=== PATIENT | male | born 1965 | race Caucasian/White ===

== ENCOUNTER 2016-08-28 05:39 | Day surgery (SDC) | payer MEDICARE, BC ==
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
[~2016-08-28 05:39] MED LIST: IV START KIT ONE; LACTATED RINGERS 1,000 ML ONE
[2016-08-28] MEDS ORDERED: CEFAZOLIN SODIUM 2 GRAM PREMIX 100 ML IV PRN (05:45)
[2016-08-28] MEDS ORDERED: MIDAZOLAM HCL 1 MG/ML 2ML VIAL ONE ×2 (06:32→07:01)
[2016-08-28] MEDS ORDERED: PROPOFOL 20 ML IV ONE ×2 (06:32→07:52)
[2016-08-28] MEDS ORDERED: FENTANYL 100 MCG/2 ML VIAL ONE ×2 (06:32→07:48)
[2016-08-28] MEDS ORDERED: ROPIVACAINE 0.5% 30 ML VIAL ONE (07:01)
[2016-08-28] MEDS ORDERED: NERVE BLOCK PROCEDURAL TRAY 1 EACH ONE (07:04)
[2016-08-28] MEDS ORDERED: LACTATED RINGERS 1,000 ML ONE (07:31)
[2016-08-28] MEDS ORDERED: FENTANYL 100 MCG/2 ML VIAL IV PRN (07:54)
[2016-08-28] MEDS ORDERED: MEPERIDINE 25 MG/ML SYRINGE IV PRN (07:54)
[2016-08-28] MEDS ORDERED: PROMETHAZINE HCL 25 MG/ML VIAL IM PRN (07:54)
[2016-08-28] MEDS ORDERED: NALOXONE HCL 0.4 MG/ML VIAL IV PRN (07:54)
[2016-08-28] MEDS ORDERED: ATROPINE SULFATE 0.4 MG/1 ML VIAL IV PRN (07:54)
[2016-08-28] MEDS ORDERED: ON-Q PUMP/ROPIVACAINE 0.2% 400 ML in PREMIX BAG 1 EACH NB PRN (07:54)
[2016-08-28] MEDS ORDERED: ONDANSETRON 4 MG/2ML 2 ML VIAL IV PRN ×2 (07:54→09:07)
[2016-08-28] MEDS ORDERED: LACTATED RINGERS 1,000 ML IV SCH ×2 (08:00→09:07)
[2016-08-28] MEDS ORDERED: ON-Q PUMP/ROPIVACAINE 0.2% 450 ML ONE (08:06)
--- NOTE | 2016-08-28 08:23 | PCMBPN ---
Brief Post Op Note: Date of Procedure: 08/28/16 Start Time: 0730 Preoperative Diagnosis: 1. right knee postop arthrofibrosis Postoperative Diagnosis: 1. Same Procedure: right knee manipulation under anesthesia Surgeon: Anatoliy Whitney MD Assist: none Anesthesia: Diana Loyola (block + MAC) Findings: preop ROM 10-70, postop 2-120 Condition: stable to PACU Complications: none IV Fluids: 1200 mLs of LR Urine Output: 0 mLs Estimated Blood Loss: 0 mLs Tourniquet Time: 0 Specimens: none Implants: none Drains: none Anatoliy Whitney MD
--- NOTE | 2016-08-28 08:25 | RAD ---
INTRAOPERATIVE FLUOROSCOPY HISTORY: Right knee manipulation. TECHNIQUE: 6.3 seconds of fluoroscopy time was provided for Dr. Whitney for purposes of procedural guidance. 4 fluoroscopic spot images were submitted for review. Correlation against plain films, 07/08/2016. FINDINGS: Status post right knee arthroplasty. No gross malalignment or obvious displaced fracture identified. IMPRESSION: Fluoroscopy provided for procedural guidance.
[2016-08-28] MEDS ORDERED: HYDROMORPHONE HCL 1 MG/ML SYRINGE ONE ×2 (08:39→08:50)
[2016-08-28] MEDS: HYDROMORPHONE HCL 1 MG/ML SYRINGE IV PRN ×3 (08:41→08:55)
--- NOTE | 2016-08-28 09:05 | RAD ---
RIGHT KNEE 2 VIEWS HISTORY: Status post right knee manipulation under anesthesia. Frontal and lateral views of the right knee. COMPARISON: 07/08/2016. POSTPROCEDURAL CHANGE: Status post knee arthroplasty. ALIGNMENT: Grossly unremarkable.. JOINT EFFUSION: Small joint effusion.. CALCIFICATIONS: No abnormal calcifications noted. FRACTURE: No displaced acute fracture. PERIPROSTHETIC LUCENCY: No gross new periprosthetic lucency identified. IMPRESSION: Grossly stable post arthroplasty appearance of the right knee. No new fracture or periprosthetic lucency noted. Small joint effusion.
[2016-08-28] MEDS ORDERED: HYDROMORPHONE HCL 1 MG/ML SYRINGE IV PRN (09:07)
[2016-08-28] MEDS ORDERED: KETOROLAC TROMETHAMINE 30 MG/ML 1 ML VIAL IV PRN (09:07)
[2016-08-28] MEDS ORDERED: OXYCODONE HCL 5 MG TABLET PO PRN (09:07)
[2016-08-28] MEDS ORDERED: DIPHENHYDRAMINE HCL 50 MG/1 ML VIAL IV PRN (09:07)
[2016-08-28] MEDS ORDERED: HYDROMORPHONE HCL 0.5 MG/0.5 ML SYRINGE IV PRN (09:47)
[2016-08-28] MEDS ORDERED: KETOROLAC TROMETHAMINE 30 MG/ML 1 ML VIAL ONE (09:59)
--- NOTE | 2016-08-29 09:57 | OP ---
Neftaly FARLEY : 1965 [id number] DATE OF PROCEDURE: August 28, 2016 PREOPERATIVE DIAGNOSIS: Right knee postoperative arthrofibrosis. POSTOPERATIVE DIAGNOSIS: Right knee postoperative arthrofibrosis. PROCEDURE PERFORMED: RIGHT KNEE MANIPULATION UNDER ANESTHESIA. SURGEON: Anatoliy Whitney M.D. RADIOLOGIC TECHNICIAN: None ANESTHESIA: Diana Loyola C.R.N.A., who provided a regional block and monitored anesthesia care. SPECIMENS: No material was sent to the laboratory. ESTIMATED BLOOD LOSS: None. FLUIDS REPLACED: 1,200 mL of crystalloid. TOURNIQUET TIME: None. URINE OUTPUT: None. IMPLANTS: None. DRAINS: No drains. INDICATIONS: This is a 51-year-old gentleman who previously underwent a right total knee arthroplasty and had some interruptions in his initial postoperative physical therapy secondary to medical complications. He has reached a point where he is not progressing any further in this range of motion and has a preoperative range of motion of approximately 10 to 70 degrees. Given this finding and his inability to return to full activities he is interested in manipulation under anesthesia to try to regain some motion. Risks, benefits and alternatives were discussed with the patient and he elected to proceed with surgery. Informed consent was obtained and documented in the chart and the patient was placed on the schedule the first available convenience. DESCRIPTION OF PROCEDURE: The patient was identified in the preoperative holding area where he was marked with an indelible marker by the operating surgeon. He underwent an adductor canal block with a catheter. He was taken to the operating room where he succumbed to intravenous anesthesia. Initial measurements of his range of motion were made. An operative time out was performed and confirmed by all members of the operative team and then gentle pressure was applied by the operating surgeon gradually increasing has flexion and extension until we achieved a post manipulation range of motion from 2 to 120 degrees. Images were obtained with an intraoperative C-arm confirming that there was no bony injury and the patient's stability was checked and found to be satisfactory throughout his range of motion. At this point he was awakened from his sedation. He was transferred to a stretcher and taken postoperatively to the postanesthesia care unit in stable condition. There were no observed intraoperative consultations during this procedure. Job [id number] Cc: Sudburyjanine Marc
== END 2016-08-28 10:35 | disposition home or self-care (01) ==
LOC: SDC 05:39
PROVIDERS: ATTEND Orthopaedic Surgery
PROC: 0SSCXZZ Reposition Right Knee Joint, External Approach (ICD-10-PCS; principal; 2016-08-28)
DX: M24.661 Ankylosis, right knee (principal); Z96.651 Presence of right artificial knee joint; E11.9 Type 2 diabetes mellitus without complications; G47.30 Sleep apnea, unspecified; G47.00 Insomnia, unspecified; F32.9 Major depressive disorder, single episode, unspecified; Z88.5 Allergy status to narcotic agent; Z79.84 Long term (current) use of oral hypoglycemic drugs; Z79.82 Long term (current) use of aspirin
CPT/HCPCS: 27570; 76000; 73560 ×2; J1170 ×2; J3010 ×2; J2795 ×3; A9270; J1885; J2250 ×2; J7120 ×2; A4306; G8978; G8979; G8980

== ENCOUNTER 2016-09-10 21:28 | Emergency (ER) | payer MEDICARE, BC ==
[2016-09-10 22:09] LABS: ABSOLUTE NEUTROPHIL COUNT 6.3 K/mm3 (1.8-7.7); BASO % 0.4 % (0.2-1.0); EOS # 0.2 (0.0-0.5); EOS % 1.5 % (0.9-2.9); HEMATOCRIT 46.6 % (32.0-52.0); HEMOGLOBIN 15.8 gm/l (14.0-18.0); IMM NEUT # 0.1 K/mm3 (0-0.2); IMM NEUT% 0.5 % (0-1); LYMPH # 3.6 (1.0-4.8); LYMPH % 32.8 % (15-45); MEAN CELL VOLUME 85.5 fl (80.0-94.0); MEAN CORPUSCULAR HGB CONC 33.9 g/dl (33.0-37.0); MONO # 0.8 (0.0-0.8); MONO % 7.4 % (4-12); NEUT % 57.4 % (43-75); PLATELET COUNT 303 K/mm3 (130-400); RED CELL DISTRIBUTION WIDTH 13.2 % (11.5-14.5)
[2016-09-10 22:18] LABS: INR 0.97; PROTHROMBIN TIME 10.2 SECONDS (9.3-11.4)
[2016-09-10 22:24] LABS: ALB/GLOB RATIO 1.4 (>1.0); ALBUMIN 4.6 gm/dL (3.5-5.7); CALCIUM 9.8 mg/dL (8.6-10.3)
[2016-09-10] MEDS ORDERED: SODIUM CHLORIDE 0.9% 1,000 ML ONE (22:37)
[2016-09-10] MEDS ORDERED: HYDROMORPHONE HCL 1 MG/ML SYRINGE ONE (22:37)
[2016-09-10] MEDS ORDERED: ONDANSETRON 4 MG/2ML 2 ML VIAL ONE (22:37)
[2016-09-10] MEDS: IOPAMIDOL 370 (76%) 100 ML VIAL IV ONE (23:14)
[2016-09-11] MEDS ORDERED: HYDROMORPHONE HCL 1 MG/ML SYRINGE ONE (00:02)
--- NOTE | 2016-09-11 08:16 | RAD ---
History: Ground-level fall with bruising to the anterior left-sided ribs. Comparison: 08/22/2016. Technique: 2 views Findings: The soft tissue and bony structures are unremarkable. The heart size is appropriate. No infiltrate, effusion or pneumothorax is observed. The hilar and mediastinal structures are normal. Impression: 1. A low inspiratory volume. 2. No active intrathoracic process.
--- NOTE | 2016-09-11 08:20 | RAD ---
KNEE- RIGHT 4 OR MORE VIEWS HISTORY: Multiple falls. COMPARISONS: 08/28/2016. FINDINGS: Multiple views of the right knee and demonstrate a total right knee arthroplasty with long stemmed femoral and tibial components. The appearance is similar to the appearance on prior exam with no definite pericomponent fracture visualized. No focal soft tissue abnormalities are seen. IMPRESSION: 1. A stable appearance of the total right knee arthroplasty with no definite pericomponent fracture visualized.
--- NOTE | 2016-09-11 08:42 | CT ---
HEAD W/O CON History: Multiple falls. Comparison: 12/22/2013. Procedure: 1 mm axial images were obtained through the head from the vertex to the base of the skull without intravenous contrast. Stacked reconstructed 5 mm images were then obtained in the axial, coronal and sagittal planes. Findings: The lateral ventricles are of normal size and shape without evidence of hydrocephalus. No evidence of midline shift is seen. No mass or mass-effect is observed. No evidence of intra- or extra-axial fluid collections or hemorrhage is identified. The dawson/white differentiation is within expected. The basilar cisterns remain uneffaced. The posterior fossa structures are unremarkable. No acute osseous abnormalities are identified. Impression: 1. A negative unenhanced CT scan of the brain. The findings were called to the emergency room at 2331 hours, 09/10/2016, by [facility].
--- NOTE | 2016-09-11 08:55 | CT ---
Exam Type: ABD/PELVIS W/ CON Date and Time: 09/10/2016 10:38 PM Clinical information: Falls. Comparison: 09/11/2015. Procedure: Imaging device: [employer] Aquilion [address] scanner 1 mm axial images were obtained through the abdomen and pelvis. Stacked reconstructed 3, 4 and 5 mm images were photographed in the axial coronal and sagittal planes. No oral contrast was utilized for this examination. 100 ml of Isovue-370 was injected intravenously. Exam: with intravenous contrast. FINDINGS: Lung bases:The visualized lung bases appear to be appropriate with no mass, effusion or consolidation visualized. Liver: the liver is homogeneous with no discrete abnormality visualized. No definite findings of biliary dilatation are observed. Spleen: The spleen is homogeneous and does not appear to be enlarged. Gallbladder: Surgically absent. Pancreas: Normal without enlargement or evidence of adjacent inflammatory changes. Adrenal glands: Normal without enlargement or evidence of adjacent inflammatory changes. Abdominal aorta: Moderate atherosclerotic vascular calcification is seen. No focal aneurysm is visualized. Kidneys: The kidneys appear to be symmetric in size with no perinephric inflammatory changes are identified. No current findings of hydronephrosis are seen. Bowel structures: The visualized bowel is of normal caliber without evidence of dilatation or obstruction. No free fluid or mesenteric inflammatory changes are identified. Appendix: The appendix is well-visualized and appears to be of normal caliber. No periappendiceal inflammatory changes or CT findings of appendicitis are currently observed. Bladder: The bladder is of normal contour. No wall thickening or significant distention is observed. Hernia: A fat filled right inguinal hernia is present as well as an umbilical hernia. Adenopathy: No significant enlarged adenopathy is visualized. Osseous structures: Prominent multilevel lumbar degenerative changes are present, particularly involving the lower lumbar spine. No discrete fracture is visualized. Pelvic structures: The prostate gland is mildly enlarged. IMPRESSION: 1. Prior cholecystectomy. 2. Fat filled umbilical and right inguinal hernias. 3. Atherosclerotic vascular calcification. 4. Lumbar degenerative changes, particularly at the lower lumbar levels. 5. No large organ injury or evidence of free fluid visualized. 6. An enlarged prostate gland. The findings were called to the emergency room at 2331 hours, 09/10/2016, by [facility].
== END 2016-09-11 00:35 | disposition home or self-care (01) ==
LOC: ED 21:28
DX: S09.90XA Unspecified injury of head, initial encounter (principal); M54.9 Dorsalgia, unspecified; M25.561 Pain in right knee; R11.0 Nausea; I25.2 Old myocardial infarction; I48.91 Unspecified atrial fibrillation; I10 Essential (primary) hypertension; E11.9 Type 2 diabetes mellitus without complications; Z79.82 Long term (current) use of aspirin; Z79.84 Long term (current) use of oral hypoglycemic drugs; W10.9XXA Fall (on) (from) unspecified stairs and steps, initial encounter; Y92.9 Unspecified place or not applicable
CPT/HCPCS: 85025; 80053; 85610; 71020; 73564; 74177; 70450; 96375; 96376; 99284 ×2; 96374; 96361 ×2; 93005; J1170 ×2; J2405; J7030; Q9967

== ENCOUNTER 2016-09-30 17:34 | Emergency (ER) | payer BC, MEDICARE | END 2016-09-30 19:20 | disposition home or self-care (01) | LOC: ED 17:34 | DX: K08.89 Other specified disorders of teeth and supporting structures (principal); I10 Essential (primary) hypertension; E11.9 Type 2 diabetes mellitus without complications; Z76.5 Malingerer [conscious simulation]; Z79.84 Long term (current) use of oral hypoglycemic drugs ==